=== PATIENT | male | born 1980 | race Caucasian/White ===

== ENCOUNTER 2021-04-06 18:49 | Inpatient (IN) ==
[2021-04-06 21:49] LABS: Hematocrit 14 % (42-52); Hemoglobin 4.6 g/dL (14.0-18.0); Mean Corpuscular HGB Conc 32 g/dL (31-36); Mean Corpuscular Hemoglobin 25 pg (27-31); Mean Corpuscular Volume 79 fL (80-94); Platelet Count 432 10^3/uL (150-450); Red Blood Count 1.81 10^6 /uL (4.18-5.48); Red Cell Distribution Width 15 % (10-15); White Blood Count 11.2 10^3/uL (3.5-10.8)
[2021-04-06 21:51] LABS: ABS Basophils 0.1 10^3/ul (0-0.2); ABS Lymphocytes 1.1 10^3/ul (1.0-4.8); ABS Monocytes 0.6 10^3/ul (0-0.8); ABS Neutrophils 9.4 10^3/ul (1.5-7.7); Lymphocyte % 9.8 %; Nucleated Red Blood Cells % 0.1
[2021-04-06 22:00] LABS: ALT 11 U/L (7-52); AST 12 U/L (13-39); Albumin 3.7 g/dL (3.2-5.2); Albumin/Globulin Ratio 1.7 (1-3); Alkaline Phosphatase 44 U/L (35-149); Anion Gap 8 mmol/L (2-11); Blood Urea Nitrogen 12 mg/dL (6-24); CO2 Carbon Dioxide 24 mmol/L (22-32); Calcium 8.7 mg/dL (8.6-10.3); Chloride 105 mmol/L (101-111); Globulin 2.2 g/dL (2-4); Glucose 127 mg/dL (70-100); Lipase 17 U/L (11.0-82.0); Potassium 3.7 mmol/L (3.5-5.0); Sodium 137 mmol/L (135-145); Total Protein 5.9 g/dL (6.4-8.9); eGFR CKD-EPI 115.5 (>60)
[2021-04-06 22:24] LABS: Activated Partial Thrombo Time 24.8 seconds (26.0-38.0); INR 1.19 (0.86-1.15)
[2021-04-06] MEDS ORDERED: Pantoprazole 80 mg in NS BAG 80 MG/250 ML BAG IV ONE (22:27)
[2021-04-06] MEDS ORDERED: Pantoprazole VIAL 40 MG VIAL IV ONE (22:28)
[2021-04-07] MEDS ORDERED: Iohexol 300 (CONTRAST) 10 ML SDV IV ONE (01:29)
[2021-04-07 02:04] LABS: Hematocrit 15 % (42-52); Mean Corpuscular HGB Conc 33 g/dL (31-36); Mean Corpuscular Hemoglobin 26 pg (27-31); Mean Corpuscular Volume 80 fL (80-94); Platelet Count 360 10^3/uL (150-450); Red Blood Count 1.91 10^6 /uL (4.18-5.48); Red Cell Distribution Width 16 % (10-15); White Blood Count 9.4 10^3/uL (3.5-10.8)
[2021-04-07 02:46] LABS: Urine Appearance Turbid; Urine Bilirubin Negative (Negative); Urine Blood Negative (Negative); Urine Color Yellow; Urine Glucose Negative (Negative); Urine Ketones 2+ (Negative); Urine Nitrite Negative (Negative); Urine Protein Negative (Negative); Urine Specific Gravity 1.054 (1.002-1.030); Urine Urobilinogen Negative (Negative)
[2021-04-07 05:46] LABS: Hematocrit 17 % (42-52); Hemoglobin 5.6 g/dL (14.0-18.0)
[2021-04-07 10:25] LABS: Hematocrit 20 % (42-52); Hemoglobin 6.5 g/dL (14.0-18.0); Mean Corpuscular HGB Conc 33 g/dL (31-36); Mean Corpuscular Hemoglobin 27 pg (27-31); Mean Corpuscular Volume 82 fL (80-94); Mean Platelet Volume 5.9 fL (7.4-10.4); Platelet Count 341 10^3/uL (150-450); Red Blood Count 2.38 10^6 /uL (4.18-5.48); Red Cell Distribution Width 16 % (10-15); White Blood Count 8.6 10^3/uL (3.5-10.8)
[2021-04-07] MEDS ORDERED: fentaNYL 100 mcg/2 ml 50 MCG/ML VIAL ONE (13:52)
[2021-04-07] MEDS ORDERED: Lidocaine 2% PF 5 ML VIAL ONE (13:53)
[2021-04-07 15:07] LABS: Hematocrit 22 % (42-52); Hemoglobin 7.2 g/dL (14.0-18.0)
[2021-04-07 15:26] LABS: % Iron Saturation 5 % (15-55); Iron < 20 ug/dL (50-212); Total Iron Binding Capacity 365 mcg/dL (250-450); Transferrin 261 mg/dL (203-362); Unsaturated Iron Binding 345 ug/dL
[2021-04-07 15:44] LABS: Ferritin 4.1 ng/mL (24-336)
[2021-04-07] MEDS: Pantoprazole 80 mg in NS BAG 80 MG/250 ML BAG IV SCH (16:59)
[2021-04-07] MEDS: Iron Sucrose 200 MG in NS 0.9% 100 ml BAG 100 ML IVPB SCH (18:26)
[2021-04-07 21:37] LABS: Hematocrit 22 % (42-52); Hemoglobin 7.2 g/dL (14.0-18.0)
[2021-04-07] MEDS ORDERED: Lactated Ringers 1000 ml BAG 1,000 ML IV ONE (23:06)
[2021-04-07] MEDS ORDERED: Ondansetron 4 mg VIAL 2 MG/ML 2 ml VIAL IV PRN (23:06)
[2021-04-07 23:20] LABS: Hematocrit 20 % (42-52); Hemoglobin 6.5 g/dL (14.0-18.0)
[2021-04-08] MEDS: Pantoprazole 80 mg in NS BAG 80 MG/250 ML BAG IV SCH ×2 (02:36→17:02)
[2021-04-08 06:13] LABS: ABS Lymphocytes 1.2 10^3/ul (1.0-4.8); ABS Neutrophils 11.4 10^3/ul (1.5-7.7); Eosinophil % 0.1 %; Hematocrit 17 % (42-52); Hemoglobin 5.7 g/dL (14.0-18.0); Lymphocyte % 8.6 %; Mean Corpuscular HGB Conc 33 g/dL (31-36); Mean Corpuscular Hemoglobin 27 pg (27-31); Mean Corpuscular Volume 84 fL (80-94); Mean Platelet Volume 6.6 fL (7.4-10.4); Nucleated Red Blood Cells % 0.1; Platelet Count 268 10^3/uL (150-450); Red Blood Count 2.07 10^6 /uL (4.18-5.48); Red Cell Distribution Width 16 % (10-15); White Blood Count 13.5 10^3/uL (3.5-10.8)
[2021-04-08 06:28] LABS: Calcium 7.7 mg/dL (8.6-10.3); Potassium 4.2 mmol/L (3.5-5.0)
[2021-04-08] MEDS: Iron Sucrose 200 MG in NS 0.9% 100 ml BAG 100 ML IVPB SCH (10:23)
[2021-04-08] MEDS ORDERED: Naloxone 0.4 mg VIAL 0.4 mg/ml 1 ml VIAL IV PRN (10:45)
[2021-04-08] MEDS ORDERED: oxyCODONE/Acetamin 5/325 mg TAB PO PRN (10:45)
[2021-04-08] MEDS ORDERED: HYDROcodone/ACETAMIN 5/325 mg TAB PO PRN (10:45)
[2021-04-08] MEDS ORDERED: Prochlorperazine 5 mg/ml 2 ml VIAL (10 mg) IV PRN (10:45)
[2021-04-08] MEDS ORDERED: fentaNYL 100 mcg/2 ml 50 MCG/ML VIAL IV PRN (10:45)
[2021-04-08] MEDS ORDERED: Midazolam 2 mg/2 ml VIAL 1 mg/ml 2 ml VIAL (2 mg) ONE ×4 (10:49→12:11)
[2021-04-08] MEDS ORDERED: fentaNYL 100 mcg/2 ml 50 MCG/ML VIAL ONE ×3 (10:49→14:45)
[2021-04-08] MEDS ORDERED: Propofol 10 MG/ML 20 ML BTL ONE ×2 (10:49→11:27)
[2021-04-08] MEDS ORDERED: Lidocaine 2% PF 5 ML VIAL ONE (10:50)
[2021-04-08 11:12] LABS: Hematocrit 21 % (42-52); Hemoglobin 6.8 g/dL (14.0-18.0)
[2021-04-08] MEDS ORDERED: Metoclopramide 5 MG/ML VIAL (10 mg) IV SLOW PU ONE (11:17)
[2021-04-08] MEDS ORDERED: Metoclopramide 5 MG/ML VIAL (10 mg) ONE (11:18)
[2021-04-08] MEDS ORDERED: Phenylephrine 40 mcg/mL 10mL (400mcg) SYRINGE ONE (11:41)
[2021-04-08] MEDS ORDERED: Succinylcholine 200 mg VIAL 20 mg/ml 10 ml VIAL (200 mg) ONE (11:44)
[2021-04-08] MEDS ORDERED: Rocuronium 50 mg VIAL 10 mg/ml 5 ml VIAL (50 mg) ONE ×3 (12:17→14:18)
[2021-04-08] MEDS ORDERED: ceFAZolin VIAL VIAL ONE (12:21)
[2021-04-08] MEDS ORDERED: EPINEPHrine SYR 0.1MG/ML 10 ml SYRINGE ONE (12:37)
[2021-04-08 12:41] LABS: Hematocrit 18 % (42-52); Hemoglobin 5.6 g/dL (14.0-18.0)
[2021-04-08] MEDS ORDERED: Piperacillin/Tazobac 3.375 GM BAG ONE (12:46)
[2021-04-08 12:51] LABS: Mean Platelet Volume 6.6 fL (7.4-10.4); Platelet Count 172 10^3/uL (150-450)
[2021-04-08 12:52] LABS: Potassium 4.4 mmol/L (3.5-5.0)
[2021-04-08] MEDS ORDERED: ZOSYN 3.375 GM x ONE DOSE over 30 miuntes IV (13:00)
[2021-04-08 13:01] LABS: Activated Partial Thrombo Time 33.9 seconds (26.0-38.0); Fibrinogen 120.6 mg/dL (110.8-404.3); INR 1.69 (0.86-1.15)
[2021-04-08 13:10] LABS: PCO2 Arterial 62 mmHg (35-45); PO2 Arterial 156 mmHg (80-100)
[2021-04-08] MEDS ORDERED: FLUCONAZOLE 400 MG ONE (13:30)
[2021-04-08 13:43] LABS: Hematocrit 22 % (42-52); Hemoglobin 7.4 g/dL (14.0-18.0)
[2021-04-08 14:02] LABS: PCO2 Arterial 45 mmHg (35-45); PO2 Arterial 131 mmHg (80-100)
[2021-04-08] MEDS ORDERED: Sodium Bicarbonate 8.4% SYR 50 ml SYRINGE ONE ×2 (14:07→14:09)
[2021-04-08] MEDS ORDERED: Sodium Bicarbonate 8.4% VIAL 1 MEQ/ML 50 ml VIAL (50 meq) ONE (14:08)
[2021-04-08 14:09] LABS: INR 1.73 (0.86-1.15)
[2021-04-08] MEDS ORDERED: Midazolam 5 mg/5 ml VIAL 1 mg/ml 5 ml VIAL (5 mg) ONE (14:23)
[2021-04-08 14:30] LABS: Mean Platelet Volume 6.9 fL (7.4-10.4); Platelet Count 221 10^3/uL (150-450)
[2021-04-08] MEDS ORDERED: Propofol 10 mg/ml 100 ML BTL 100 ML ONE (15:26)
[2021-04-08] MEDS: Propofol 10 mg/ml 100 ML BTL 100 ML IV SCH ×4 (15:26→23:22)
[2021-04-08] MEDS ORDERED: fentaNYL INFUSION 50 mcg/mL VL 2,500 MCG/50 ML VIAL IV SCH (16:00)
[2021-04-08 16:14] LABS: ABS Neutrophils 13.6 10^3/ul (1.5-7.7); ABS Nucleated RBC 0.1 10^3/ul; Hematocrit 26 % (42-52); Hemoglobin 8.5 g/dL (14.0-18.0); Lymphocyte % 6.4 %; Mean Corpuscular HGB Conc 33 g/dL (31-36); Mean Corpuscular Hemoglobin 28 pg (27-31); Mean Corpuscular Volume 84 fL (80-94); Mean Platelet Volume 6.5 fL (7.4-10.4); Nucleated Red Blood Cells % 0.3; Platelet Count 174 10^3/uL (150-450); Red Blood Count 3.03 10^6 /uL (4.18-5.48); Red Cell Distribution Width 15 % (10-15); White Blood Count 15.6 10^3/uL (3.5-10.8)
[2021-04-08 16:26] LABS: PCO2 Arterial 36 mmHg (35-45); PO2 Arterial 116 mmHg (80-100)
[2021-04-08] MEDS ORDERED: Fluconazole 400 MG IVPREMIX 400 MG/200 ML BAG IVPB SCH (16:30)
[2021-04-08 16:31] LABS: Albumin 2.1 g/dL (3.2-5.2); Albumin/Globulin Ratio 1.9 (1-3); Calcium 6.7 mg/dL (8.6-10.3); Globulin 1.1 g/dL (2-4); Magnesium 1.3 mg/dL (1.9-2.7); Phosphorus 4.1 mg/dL (2.5-5.0); Potassium 4.5 mmol/L (3.5-5.0); Total Bilirubin 0.5 mg/dL (0.2-1.0); Total Protein 3.2 g/dL (6.4-8.9); eGFR CKD-EPI 112.9 (>60)
[2021-04-08 16:31] LABS: Activated Partial Thrombo Time 28.2 seconds (26.0-38.0); INR 1.43 (0.86-1.15)
[2021-04-08] MEDS ORDERED: Magnesium Sulf 4 GM/100 ML IV 4,000 MG/100 ML BAG IVPB ONE (16:37)
[2021-04-08] MEDS ORDERED: Zosyn per Pharmacy NOTE FOLLOW UP SCH (17:00)
[2021-04-08] MEDS: Lactated Ringers 1000 ml BAG 1,000 ML IV SCH (17:01)
[2021-04-08] MEDS: ZOSYN 3.375 GM Q8H per EXTENDED INFUSION IV SCH (17:18)
[2021-04-08 18:24] LABS: Hematocrit 25 % (42-52); Hemoglobin 8.7 g/dL (14.0-18.0)
[2021-04-08] MEDS ORDERED: Magnesium Sulfate 2 gm BAG 2 GM/50 ML BAG IVPB ONE (19:30)
[2021-04-08] MEDS ORDERED: Norepinephrine 16MCG/ML BAG NS 4,000 MCG/250 ML BAG IV SCH (20:00)
[2021-04-08] MEDS: Acetaminophen IV 1 GM/100ML 100 ML IV PRN (23:13)
[2021-04-09] MEDS: Chlorhexidine MOUTHWASH 0.12% 15 ML UDC TOPICAL SCH ×4 (00:15→12:52)
[2021-04-09 00:21] LABS: Hematocrit 28 % (42-52); Hemoglobin 9.4 g/dL (14.0-18.0)
[2021-04-09] MEDS: ZOSYN 3.375 GM Q8H per EXTENDED INFUSION IV SCH ×3 (00:34→18:13)
[2021-04-09] MEDS: Pantoprazole 80 mg in NS BAG 80 MG/250 ML BAG IV SCH ×3 (01:38→13:18)
[2021-04-09] MEDS ORDERED: Pantoprazole 80 mg in NS BAG 80 MG/250 ML BAG IV SCH (02:00)
[2021-04-09] MEDS: Propofol 10 mg/ml 100 ML BTL 100 ML IV SCH ×3 (03:21→09:34)
[2021-04-09 04:18] LABS: ABS Basophils 0.1 10^3/ul (0-0.2); ABS Lymphocytes 1.7 10^3/ul (1.0-4.8); ABS Monocytes 1.5 10^3/ul (0-0.8); ABS Neutrophils 18.1 10^3/ul (1.5-7.7); Hematocrit 27 % (42-52); Hemoglobin 9.1 g/dL (14.0-18.0); Mean Corpuscular HGB Conc 34 g/dL (31-36); Mean Corpuscular Hemoglobin 28 pg (27-31); Mean Corpuscular Volume 84 fL (80-94); Mean Platelet Volume 7.3 fL (7.4-10.4); Nucleated Red Blood Cells % 0.2; Platelet Count 195 10^3/uL (150-450); Red Blood Count 3.22 10^6 /uL (4.18-5.48); Red Cell Distribution Width 15 % (10-15); White Blood Count 21.4 10^3/uL (3.5-10.8)
[2021-04-09 04:29] LABS: Albumin 2.3 g/dL (3.2-5.2); Albumin/Globulin Ratio 1.6 (1-3); Calcium 7.2 mg/dL (8.6-10.3); Globulin 1.4 g/dL (2-4); Magnesium 2.4 mg/dL (1.9-2.7); Potassium 4.6 mmol/L (3.5-5.0); Total Bilirubin 0.4 mg/dL (0.2-1.0); Total Protein 3.7 g/dL (6.4-8.9); eGFR CKD-EPI 62.2 (>60)
[2021-04-09] MEDS: Lactated Ringers 1000 ml BAG 1,000 ML IV SCH (04:29)
[2021-04-09 08:09] LABS: Hematocrit 26 % (42-52); Hemoglobin 8.6 g/dL (14.0-18.0)
[2021-04-09] MEDS ORDERED: Fluconazole 400 MG IVPREMIX 400 MG/200 ML BAG IVPB SCH (13:00)
[2021-04-09] MEDS: Acetaminophen IV 1 GM/100ML 100 ML IV PRN (19:56)
[2021-04-10] MEDS: Pantoprazole 80 mg in NS BAG 80 MG/250 ML BAG IV SCH ×3 (01:18→21:39)
[2021-04-10] MEDS: ZOSYN 3.375 GM Q8H per EXTENDED INFUSION IV SCH ×3 (01:49→17:29)
[2021-04-10] MEDS ORDERED: LORazepam 2 mg VIAL 1 ml IV PUSH ONE (03:23)
[2021-04-10] MEDS ORDERED: Lorazepam PYXIS KEY PRN (03:23)
[2021-04-10] MEDS: Acetaminophen IV 1 GM/100ML 100 ML IV PRN (03:39)
[2021-04-10 05:15] LABS: Hematocrit 20 % (42-52); Hemoglobin 6.5 g/dL (14.0-18.0); Mean Corpuscular HGB Conc 33 g/dL (31-36); Mean Corpuscular Hemoglobin 28 pg (27-31); Mean Corpuscular Volume 86 fL (80-94); Mean Platelet Volume 6.5 fL (7.4-10.4); Platelet Count 171 10^3/uL (150-450); Red Blood Count 2.31 10^6 /uL (4.18-5.48); Red Cell Distribution Width 15 % (10-15); White Blood Count 15.3 10^3/uL (3.5-10.8)
[2021-04-10 05:34] LABS: Albumin 2.2 g/dL (3.2-5.2); Albumin/Globulin Ratio 1.4 (1-3); Calcium 7.3 mg/dL (8.6-10.3); Globulin 1.6 g/dL (2-4); Potassium 3.8 mmol/L (3.5-5.0); Total Bilirubin 0.4 mg/dL (0.2-1.0); Total Protein 3.8 g/dL (6.4-8.9); eGFR CKD-EPI 110.9 (>60)
[2021-04-10] MEDS: Lactated Ringers 1000 ml BAG 1,000 ML IV SCH (07:47)
[2021-04-10 12:48] LABS: Hematocrit 22 % (42-52); Hemoglobin 7.1 g/dL (14.0-18.0); Mean Corpuscular HGB Conc 32 g/dL (31-36); Mean Corpuscular Hemoglobin 28 pg (27-31); Mean Corpuscular Volume 87 fL (80-94); Mean Platelet Volume 6.5 fL (7.4-10.4); Platelet Count 171 10^3/uL (150-450); Red Blood Count 2.52 10^6 /uL (4.18-5.48); Red Cell Distribution Width 16 % (10-15); White Blood Count 14.1 10^3/uL (3.5-10.8)
[2021-04-10 12:53] LABS: INR 1.25 (0.86-1.15)
[2021-04-10 14:56] LABS: Hematocrit 21 % (42-52); Hemoglobin 6.9 g/dL (14.0-18.0); Mean Corpuscular HGB Conc 32 g/dL (31-36); Mean Corpuscular Hemoglobin 28 pg (27-31); Mean Corpuscular Volume 86 fL (80-94); Mean Platelet Volume 6.4 fL (7.4-10.4); Platelet Count 173 10^3/uL (150-450); Red Blood Count 2.49 10^6 /uL (4.18-5.48); Red Cell Distribution Width 16 % (10-15); White Blood Count 13.3 10^3/uL (3.5-10.8)
[2021-04-10] MEDS ORDERED: Lidocaine 2% PF 5 ML VIAL ONE (15:54)
[2021-04-10] MEDS ORDERED: fentaNYL 100 mcg/2 ml 50 MCG/ML VIAL ONE (15:54)
[2021-04-10] MEDS ORDERED: Propofol 10 MG/ML 20 ML BTL ONE (15:54)
[2021-04-10] MEDS ORDERED: Midazolam 5 mg/5 ml VIAL 1 mg/ml 5 ml VIAL (5 mg) ONE (15:54)
[2021-04-10] MEDS ORDERED: Ketamine HCL 50 mg/ml 10 ml VIAL (500 MG) ONE (15:54)
[2021-04-10] MEDS: Famotidine IV 10 MG/ML 2 ml VIAL (20 mg) IV SLOW PU SCH (17:31)
[2021-04-10] MEDS: Sucralfate 1 gm SUSP 1 GM/10 ML UDC PO SCH (21:39)
[2021-04-11 00:55] LABS: Hematocrit 21 % (42-52); Hemoglobin 6.8 g/dL (14.0-18.0); Mean Corpuscular HGB Conc 33 g/dL (31-36); Mean Corpuscular Hemoglobin 28 pg (27-31); Mean Corpuscular Volume 86 fL (80-94); Mean Platelet Volume 6.5 fL (7.4-10.4); Platelet Count 170 10^3/uL (150-450); Red Cell Distribution Width 16 % (10-15); White Blood Count 12.3 10^3/uL (3.5-10.8)
[2021-04-11] MEDS: ZOSYN 3.375 GM Q8H per EXTENDED INFUSION IV SCH ×3 (02:00→18:58)
[2021-04-11 05:18] LABS: Hematocrit 20 % (42-52); Hemoglobin 6.8 g/dL (14.0-18.0); Mean Corpuscular HGB Conc 33 g/dL (31-36); Mean Corpuscular Hemoglobin 29 pg (27-31); Mean Corpuscular Volume 86 fL (80-94); Mean Platelet Volume 6.4 fL (7.4-10.4); Platelet Count 164 10^3/uL (150-450); Red Blood Count 2.38 10^6 /uL (4.18-5.48); Red Cell Distribution Width 16 % (10-15); White Blood Count 10.7 10^3/uL (3.5-10.8)
[2021-04-11 05:32] LABS: Potassium 3.5 mmol/L (3.5-5.0)
[2021-04-11 05:33] LABS: Albumin 2.4 g/dL (3.2-5.2); Albumin/Globulin Ratio 1.3 (1-3); Calcium 7.4 mg/dL (8.6-10.3); Globulin 1.8 g/dL (2-4); Total Bilirubin 0.4 mg/dL (0.2-1.0); Total Protein 4.2 g/dL (6.4-8.9); eGFR CKD-EPI 120.1 (>60)
[2021-04-11] MEDS: Sucralfate 1 gm SUSP 1 GM/10 ML UDC PO SCH ×4 (08:03→22:19)
[2021-04-11] MEDS: Famotidine IV 10 MG/ML 2 ml VIAL (20 mg) IV SLOW PU SCH ×2 (08:03→22:18)
[2021-04-11] MEDS: Pantoprazole 80 mg in NS BAG 80 MG/250 ML BAG IV SCH ×2 (08:04→19:41)
[2021-04-11] MEDS ORDERED: KCL 20 MEQ/100 ML IVPREMIX 20 MEQ/100 ML BAG IV ONE (08:08)
[2021-04-11 08:34] LABS: Magnesium 1.7 mg/dL (1.9-2.7)
[2021-04-11] MEDS ORDERED: Magnesium Sulfate IV 3 GM in NS 0.9% 100 ml BAG 100 ML IVPB ONE (08:35)
[2021-04-11] MEDS ORDERED: Magnesium Sulfate 2 GM IV (Premix) IVPB ONE (09:00)
[2021-04-11] MEDS ORDERED: Magnesium Sulfate 1 GM IV 1 GM/100 ML BAG IV ONE (10:00)
[2021-04-11 19:37] LABS: Helicobacter pylori Result Not Detected; Specimen Source STOOL
[2021-04-11 20:03] LABS: Hematocrit 22 % (42-52); Hemoglobin 7.1 g/dL (14.0-18.0)
[2021-04-12] MEDS ORDERED: NS 0.9% 100 ml BAG 100 ML ONE (00:50)
[2021-04-12] MEDS: ZOSYN 3.375 GM Q8H per EXTENDED INFUSION IV SCH ×3 (00:56→16:13)
[2021-04-12] MEDS: Pantoprazole 80 mg in NS BAG 80 MG/250 ML BAG IV SCH ×3 (00:58→19:47)
[2021-04-12 05:30] LABS: ABS Eosinophils 0.1 10^3/ul (0-0.6); ABS Lymphocytes 1.2 10^3/ul (1.0-4.8); ABS Monocytes 0.8 10^3/ul (0-0.8); ABS Neutrophils 7.1 10^3/ul (1.5-7.7); Eosinophil % 1.6 %; Hematocrit 22 % (42-52); Hemoglobin 7.3 g/dL (14.0-18.0); Lymphocyte % 12.9 %; Mean Corpuscular HGB Conc 33 g/dL (31-36); Mean Corpuscular Hemoglobin 28 pg (27-31); Mean Corpuscular Volume 86 fL (80-94); Mean Platelet Volume 6.3 fL (7.4-10.4); Platelet Count 201 10^3/uL (150-450); Red Blood Count 2.57 10^6 /uL (4.18-5.48); Red Cell Distribution Width 16 % (10-15); White Blood Count 9.2 10^3/uL (3.5-10.8)
[2021-04-12 05:49] LABS: Calcium 7.7 mg/dL (8.6-10.3); Magnesium 1.8 mg/dL (1.9-2.7); Potassium 3.6 mmol/L (3.5-5.0); eGFR CKD-EPI 121.8 (>60)
[2021-04-12] MEDS ORDERED: Magnesium Sulfate 2 gm BAG 2 GM/50 ML BAG IVPB ONE (07:42)
[2021-04-12] MEDS: Sucralfate 1 gm SUSP 1 GM/10 ML UDC PO SCH ×4 (08:03→19:47)
[2021-04-12] MEDS: Famotidine IV 10 MG/ML 2 ml VIAL (20 mg) IV SLOW PU SCH ×2 (08:03→19:47)
[2021-04-12] MEDS ORDERED: Pantoprazole VIAL 40 MG VIAL IV SCH ×3 (09:23→21:00)
[2021-04-12] MEDS: KCL 20 MEQ/100 ML IVPREMIX 20 MEQ/100 ML BAG IV SCH ×2 (10:30→13:30)
[2021-04-12 15:39] LABS: Hematocrit 23 % (42-52); Hemoglobin 7.5 g/dL (14.0-18.0)
[2021-04-13] MEDS: ZOSYN 3.375 GM Q8H per EXTENDED INFUSION IV SCH ×2 (02:08→08:26)
[2021-04-13 04:47] LABS: ABS Basophils 0.1 10^3/ul (0-0.2); ABS Eosinophils 0.2 10^3/ul (0-0.6); ABS Lymphocytes 1.3 10^3/ul (1.0-4.8); ABS Monocytes 0.8 10^3/ul (0-0.8); ABS Neutrophils 6.4 10^3/ul (1.5-7.7); Eosinophil % 1.9 %; Hematocrit 21 % (42-52); Lymphocyte % 14.7 %; Mean Corpuscular HGB Conc 33 g/dL (31-36); Mean Corpuscular Hemoglobin 28 pg (27-31); Mean Corpuscular Volume 85 fL (80-94); Mean Platelet Volume 6.3 fL (7.4-10.4); Nucleated Red Blood Cells % 0.1; Platelet Count 238 10^3/uL (150-450); Red Blood Count 2.52 10^6 /uL (4.18-5.48); Red Cell Distribution Width 16 % (10-15); White Blood Count 8.7 10^3/uL (3.5-10.8)
[2021-04-13 05:38] LABS: Calcium 7.5 mg/dL (8.6-10.3); Potassium 3.5 mmol/L (3.5-5.0); eGFR CKD-EPI 121.2 (>60)
[2021-04-13] MEDS: Famotidine IV 10 MG/ML 2 ml VIAL (20 mg) IV SLOW PU SCH ×2 (08:26→20:59)
[2021-04-13] MEDS: Sucralfate 1 gm SUSP 1 GM/10 ML UDC PO SCH ×4 (08:26→21:00)
[2021-04-13] MEDS: Pantoprazole 80 mg in NS BAG 80 MG/250 ML BAG IV SCH ×2 (10:56→20:58)
[2021-04-14 05:42] LABS: ABS Eosinophils 0.2 10^3/ul (0-0.6); ABS Lymphocytes 1.1 10^3/ul (1.0-4.8); ABS Monocytes 0.8 10^3/ul (0-0.8); ABS Neutrophils 7.3 10^3/ul (1.5-7.7); Eosinophil % 2.1 %; Hematocrit 23 % (42-52); Hemoglobin 7.7 g/dL (14.0-18.0); Lymphocyte % 11.6 %; Mean Corpuscular HGB Conc 33 g/dL (31-36); Mean Corpuscular Hemoglobin 28 pg (27-31); Mean Corpuscular Volume 84 fL (80-94); Mean Platelet Volume 6.2 fL (7.4-10.4); Platelet Count 264 10^3/uL (150-450); Red Blood Count 2.79 10^6 /uL (4.18-5.48); Red Cell Distribution Width 15 % (10-15); White Blood Count 9.5 10^3/uL (3.5-10.8)
[2021-04-14 06:22] LABS: Anion Gap 6 mmol/L (2-11); Blood Urea Nitrogen 6 mg/dL (6-24); CO2 Carbon Dioxide 25 mmol/L (22-32); Calcium 7.5 mg/dL (8.6-10.3); Chloride 109 mmol/L (101-111); Glucose 101 mg/dL (70-100); Potassium 3.5 mmol/L (3.5-5.0); Sodium 140 mmol/L (135-145); eGFR CKD-EPI 120.7 (>60)
[2021-04-14] MEDS: Sucralfate 1 gm SUSP 1 GM/10 ML UDC PO SCH ×4 (07:45→20:22)
[2021-04-14] MEDS: Famotidine IV 10 MG/ML 2 ml VIAL (20 mg) IV SLOW PU SCH (07:46)
[2021-04-14] MEDS: Pantoprazole 80 mg in NS BAG 80 MG/250 ML BAG IV SCH ×2 (08:04→20:21)
[2021-04-14] MEDS ORDERED: Iron Sucrose 200 MG in NS 0.9% 100 ml IVPB SCH (09:00)
[2021-04-14] MEDS ORDERED: Iron Sucrose 20 MG/ML 5 ML VIAL IV PUSH SCH (09:00)
[2021-04-14 14:05] LABS: % Iron Saturation 10 % (15-55); Iron < 20 ug/dL (50-212); Total Iron Binding Capacity 206 mcg/dL (250-450); Transferrin 147 mg/dL (203-362); Unsaturated Iron Binding 186 ug/dL
[2021-04-14 14:25] LABS: Ferritin 41.7 ng/mL (24-336)
[2021-04-15 06:14] LABS: Hematocrit 23 % (42-52); Hemoglobin 7.6 g/dL (14.0-18.0); Mean Corpuscular HGB Conc 33 g/dL (31-36); Mean Corpuscular Hemoglobin 27 pg (27-31); Mean Corpuscular Volume 83 fL (80-94); Mean Platelet Volume 6.3 fL (7.4-10.4); Platelet Count 303 10^3/uL (150-450); Red Blood Count 2.79 10^6 /uL (4.18-5.48); Red Cell Distribution Width 16 % (10-15); White Blood Count 8.8 10^3/uL (3.5-10.8)
[2021-04-15 07:41] VITALS: BP 123/70
[2021-04-15] MEDS: Sucralfate 1 gm SUSP 1 GM/10 ML UDC PO SCH ×2 (07:48→11:34)
[2021-04-15] MEDS: Pantoprazole 80 mg in NS BAG 80 MG/250 ML BAG IV SCH ×2 (07:57→08:21)
[2021-04-15] MEDS ORDERED: Iron Sucrose 200 MG in NS 0.9% 100 ml BAG 100 ML IVPB SCH (09:00)
== END 2021-04-15 12:33 | disposition home or self-care (01) | DRG 326 ==
LOC: ED 18:49 → SUATTDRO 04-07 00:14 → EDHOLD 04-07 00:14 → MEDTELE 04-07 08:03 → ICU 04-08 15:54 → SSU 04-13 13:16
PROVIDERS: ADMIT Internal Medicine; ATTEND Internal Medicine
PROC: O.GIEGD (2021-04-07 13:00)